=== PATIENT | female | born 1955 | race Caucasian/White ===

== ENCOUNTER 2023-12-27 09:28 | Day surgery (SDC) | payer MEDICARE, SELFPAY ==
[2023-12-25 14:20] VITALS: BMI 38.6
[2023-12-27 09:38] VITALS: BMI 37.6
--- NOTE | 2023-12-27 09:42 | HO.ANESPROP2 ---
HPI - Anesthesia Eval Consult details Narrative: for colon screen [facility] Past Medical History Medical History Hyperplastic colon polyp Hyperlipemia Family History Family history of problems with anesthesia: No Surgical History Surgical History History of gynecologic surgery H/O colonoscopy History of Problems with Anesthesia: No Social History Social History Advance Directives: No Advance Directives Information Provided: Yes Meds Allergies Allergy/AdvReac Type Severity Reaction Status Date / Time No Known Allergies Allergy Verified 12/27/23 09:35 Active Medications: Current Medications Lactated Ringer's (Lr) 1,000 mls @ 100 mls/hr IVCONT .Q10H BRIAN Home Medications ?Medication ?Instructions ?Recorded ?Confirmed ?Last Taken ?Type atorvastatin 40 mg tablet 40 mg PO DAILY 12/25/23 12/27/23 Unknown History cholecalciferol (vitamin D3) 25 25 mcg PO DAILY 12/25/23 12/27/23 Unknown History mcg (1,000 unit) tablet (Vitamin D3) coenzyme Q10 50 mg capsule 50 mg PO DAILY 12/25/23 12/27/23 Unknown History flaxseed oil 1,000 mg capsule 1,000 mg PO DAILY 12/25/23 12/27/23 Unknown History wdaledvq-anz-prsba ac 400 1 tab PO DAILY 12/25/23 12/27/23 Unknown History mcg-calcium carb 500 mg-vit K1 20 mcg tablet (Women's 50 Plus Daily Formula) omega 1-oyb-jus-fish oil 1,000 mg 1 cap PO DAILY 12/25/23 12/27/23 Unknown History (120 mg-180 mg) capsule (Fish Oil) thiamine HCl (vitamin B1) 100 mg 100 mg PO DAILY 12/25/23 12/27/23 Unknown History tablet Exam Height,Weight and Vital Signs: Height 5 ft 6 in Weight 108.409 kg Airway Mallampati Class: II TM Dist: >3cm Neck ROM: Full Heart: rrr Lungs: cta Assessment and Plan Assessment Anesthesia Assessment: Anesthesia Plan Discussed Final Anesthetic Review Family History of Problems with Anesthesia: No History of Problems with Anesthesia: No NPO: Yes ASA Class: II Final Preanesthetic Review: No Changes in Pt Med Stat, Meds/Allgs Chart Reviewed, Consent Obtained/Reviewed and Anes Risks/Benef Reviewed Patient Risk: Low Procedure Risk: Low Anesthetic Plan Anesthetic Plan: MAC: Disposition: Standard PACU
[2023-12-27 09:46] VITALS: BP 153/87; PULSE 75; RESP 15; TEMP 36.7; O2SAT 95
[2023-12-27] MEDS: Lactated Ringers 1,000 ML 100 ML IVCONT (09:58)
--- NOTE | 2023-12-27 10:21 | P.HPSUR_ITS ---
Pre-Procedural Eval Section A - 24 Hr Update-Section A only Date of Service: 12/27/23 Section B - Complete if H&P > 30 days Chief Complaint: Encounter for screening for malignant neoplasm of Details of Present Illness: see H&P no changes Relevant Family History (Specify if Yes): No Relevant Social History: None Present Medications: see Short Stay Collaborative assessment Medical History: No relevant PMH History of Previous Operations: No relevant previous surgery Allergies: Allergies Allergy/AdvReac Type Severity Reaction Status Date / Time No Known Allergies Allergy Verified 12/27/23 09:35 Review of Systems Sugical H&P ROS: Negative: Constitution, Cardiovascular, Respiratory, Neurological, Psychiatric, Hem-Onc, Allergic/Immunologic, Gastrointestinal, Genitourinary, Musculoskeletal, Integumentary, Endocrine and Eyes/Ears/No se/Throat Exam Surgical H&P Exam: Normal: HEENT, Normal: Heart, Normal: Lungs, Normal: Extremities, Normal: Abdomen, Normal: Skin and Normal: Neurological Plan Diagnosis/Plan: Unchanged I have reviewed the history and physical and performed a pertinent physical examination on my patient. No changes have occurred unless specified. Time Spent With Patient Time: Total time managing care of this patient today ____ minutes.
[2023-12-27 10:52] VITALS: BP 105/60; PULSE 57; RESP 16; TEMP 36.1; O2SAT 94
[2023-12-27 11:07] VITALS: BP 118/77; PULSE 58; RESP 20; TEMP 36.3; O2SAT 95
--- NOTE | 2023-12-27 11:10 | OP_ITS ---
DATE OF SERVICE: 12/27/2023 SURGEON: Jacek Rollins MD INDICATIONS: Abnormal findings in stool. PREOPERATIVE DIAGNOSIS: POSTOPERATIVE DIAGNOSIS: PROCEDURE PERFORMED: Colonoscopy to the terminal ileum with snare polypectomy. ESTIMATED BLOOD LOSS: COMPLICATIONS: ANESTHESIA: Monitored anesthesia care. ASSISTANTS: SPECIMENS: DESCRIPTION OF PROCEDURE: A history and physical performed. The risks and benefits of procedure explained to the patient. Informed consent was obtained. The patient placed in the left lateral decubitus position. A digital rectal exam was performed and was found to be normal. The Olympus pediatric video-colonoscope was introduced into the rectum and advanced to the cecum. The cecum was identified by transillumination, palpation, and identification of the ileocecal valve. Examination was performed. The scope was removed. She tolerated the procedure well and was returned to recovery area in stable condition. FINDINGS: The terminal ileum was normal. The visualized colonic mucosa was normal. The quality of the prep was good. A single polyp at 40 cm measuring 7 mm was removed with a hot snare and recovered via suction. No other polyps were identified. There was mild sigmoid diverticulosis. Retroflexed examination shows some moderate-sized internal hemorrhoids with some irritation. IMPRESSION: Colon polyp. RECOMMENDATION: Follow up the biopsy results. MD CHERYL Fitzgerald/MILAGROL / [id number]
== END 2023-12-27 11:20 | disposition home or self-care (01) ==
PROVIDERS: Visit Provider Internal Medicine Gastroenterology
PROC: 0DJD8ZZ Inspection of Lower Intestinal Tract, Via Natural or Artificial Opening Endoscopic (ICD-10-PCS; CPT 45378; principal; 2023-12-27 11:00)
DX: R19.5 Other fecal abnormalities (principal); K63.5 Polyp of colon; K57.30 Diverticulosis of large intestine without perforation or abscess without bleeding; K64.8 Other hemorrhoids; E78.5 Hyperlipidemia, unspecified; Z79.899 Other long term (current) drug therapy
CPT/HCPCS: 45385; 88305; J2704